=== PATIENT | female | born 1990 | race Caucasian/White ===

== ENCOUNTER 2016-05-11 07:06 | Emergency (ER) | payer BC ==
[2016-05-11 07:25] VITALS: BP 131/83
--- NOTE | 2016-05-11 07:45 | UC ---
FLU HPI - HPI Summary HPI Summary: Flu symptoms for 2 days. Today fever, TORRES, body aches, dry cough, red eyes, sinus pressure, malaise, fatigue. 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 - History of Current Complaint Chief Complaint: UCRespiratory Stated Complaint: FLU SXS Time Seen by Provider: 05/11/16 07:09 Hx Obtained From: Patient Hx Last Menstrual Period: 3 weeks ?: No Onset/Duration: Gradual Onset, Lasting Days - 2 Severity Currently: Moderate Severity Initially: Mild Associated Signs & Symptoms: Positive: Fever, Myalgia, Cough, Sore Throat, Nasal Congestion, Headache Related Hx: Possible Flu/Infectious Exposure - Risk Factors Influenza Risk Factors: Negative - Allergy/Home Medications Allergies/Adverse Reactions: Allergies Allergy/AdvReac Type Severity Reaction Status Date / Time Sulfa Antibiotics Allergy Swelling Verified 05/11/16 07:24 Home Medications: Home Medications Ibuprofen TAB* [Advil TAB*] 400 mg PO Q6H PRN 05/11/16 [History Confirmed ] Norethin Acet & Estrad-Fe [[place] 1-20 mg-Mcg(24)] 1 cap PO QPM 05/11/16 [ History Confirmed 05/11/16] Phenylephrine-Chlorpheniramine [[place]ulia-[place] Plus Cold &] 2 tab PO BID PRN 05/11 [History Confirmed 05/11/16] PMH/Surg Hx/FS Hx/Imm Hx Previously Healthy: Yes - Surgical History Surgical History: Yes Surgery Procedure, Year, and Place: mole - Family History Known Family History: Negative: Respiratory Disease - Social History Occupation: Student Lives: Alone Alcohol Use: Weekly Alcohol Amount: 4 Substance Use Type: None Smoking Status (MU): Never Smoked Tobacco Review of Systems Constitutional: Fever, Chills, Fatigue Skin: Negative Eyes: Negative ENT: Sore Throat Respiratory: Cough Cardiovascular: Negative Gastrointestinal: Negative Genitourinary: Negative Motor: Negative Neurovascular: Negative Musculoskeletal: Decreased ROM, Myalgia Neurological: Headache, Weakness Psychological: Negative All Other Systems Reviewed And Are Negative: Yes Physical Exam Triage Information Reviewed: Yes Appearance: Well-Appearing, No Pain Distress, Well-Nourished Vital Signs: Initial Vital Signs Temp 101.6 F 05/11/16 07:10 Pulse 117 05/11/16 07:10 Resp 18 05/11/16 07:10 BP 131/83 05/11/16 07:10 Pulse Ox 100 05/11/16 07:10 Vital Signs Reviewed: Yes Eyes: Positive: Conjunctiva Inflamed - bilat, mild ENT: Positive: Pharyngeal erythema, TMs normal. Negative: Nasal congestion, Nasal drainage, Tonsillar swelling, Tonsillar exudate, Trismus, Muffled/hoarse voice Neck exam: Normal Respiratory Exam: Normal Respiratory: Positive: Lungs clear, Normal breath sounds, No respiratory distress, No accessory muscle use Cardiovascular Exam: Normal Musculoskeletal Exam: Normal Neurological Exam: Normal Psychological Exam: Normal Skin Exam: Normal Flu Course/Dx - Differential Dx/Diagnosis Differential Diagnosis/HQI/PQRI: Influenza Provider Diagnoses: influenza Discharge - Discharge Plan Condition: Stable Disposition: HOME Patient Education Materials: Influenza (ED) Forms: *School Release
== END 2016-05-11 07:46 | disposition home or self-care (01) ==
LOC: UCCORT 07:06
DX: J11.1 Influenza due to unidentified influenza virus with other respiratory manifestations (principal); Z88.2 Allergy status to sulfonamides
CPT/HCPCS: 99201; G0463

== ENCOUNTER 2018-09-25 07:20 | Emergency (ER) | payer BC ==
[2018-09-25 07:38] VITALS: BP 103/71
[2018-09-25 08:21] LABS: Influenza A Molecular NEGATIVE (Negative); Influenza B Molecular NEGATIVE (Negative)
--- NOTE | 2018-09-25 08:26 | UC ---
Throat Pain/Nasal Albin HPI - HPI Summary HPI Summary: 27 yo asthmatic with nasal congestion., cough, wheezing and sore throat x 2-3 days yesterday felt feverish but tmax was<100 no cp or sob - History of Current Complaint Chief Complaint: UCRespiratory Stated Complaint: SORE THROAT,FEVER Time Seen by Provider: 09/25/18 07:46 Hx Obtained From: Patient Hx Last Menstrual Period: "I don't know the exact date, but it was almost a month ago." Onset/Duration: Gradual Onset Severity: Mild Pain Intensity: 4 Pain Scale Used: 0-10 Numeric Cough: None Associated Signs & Symptoms: Positive: Sinus Discomfort, Nasal Discharge - Epiglottits Risk Factors Epiglottis Risk Factors: Negative - Allergies/Home Medications Allergies/Adverse Reactions: Allergies Allergy/AdvReac Type Severity Reaction Status Date / Time Sulfa (Sulfonamide Allergy Swelling Verified 09/25/18 07:34 Antibiotics) PMH/Surg Hx/FS Hx/Imm Hx Previously Healthy: Yes Respiratory History: Asthma - Surgical History Surgical History: Yes Surgery Procedure, Year, and Place: Right Ovarian Cyst, 2018, [place] - Family History Known Family History: Positive: Hypertension Negative: Cardiac Disease, Diabetes, Respiratory Disease - Social History Alcohol Use: Weekly Alcohol Amount: 4 Substance Use Type: None Smoking Status (MU): Never Smoked Tobacco Review of Systems All Other Systems Reviewed And Are Negative: Yes Constitutional: Positive: Fever - dinesh Skin: Positive: Negative Eyes: Positive: Negative ENT: Positive: Sore Throat, Nasal Discharge, Sinus Congestion, Sinus Pain/ Tenderness Respiratory: Positive: Cough, Other - wheezing Cardiovascular: Positive: Negative Gastrointestinal: Positive: Negative Genitourinary: Positive: Negative Motor: Positive: Negative Neurovascular: Positive: Negative Musculoskeletal: Positive: Negative Neurological: Positive: Negative Psychological: Positive: Negative Physical Exam Triage Information Reviewed: Yes Appearance: Well-Appearing, No Pain Distress, Well-Nourished Vital Signs: Initial Vital Signs Temp 98.5 F 09/25/18 07:31 Pulse 90 09/25/18 07:31 Resp 18 09/25/18 07:31 BP 103/71 09/25/18 07:31 Pulse Ox 99 09/25/18 07:31 Vital Signs Reviewed: Yes Eyes: Positive: Conjunctiva Clear ENT: Positive: Hearing grossly normal, Pharynx normal, Nasal congestion, TMs normal, Uvula midline. Negative: Nasal drainage, Tonsillar swelling, Tonsillar exudate, Trismus, Muffled voice, Hoarse voice, Dental tenderness, Sinus tenderness Dental Exam: Normal Neck: Positive: Supple, Nontender, No Lymphadenopathy Respiratory: Positive: No respiratory distress, No accessory muscle use, Wheezing - with forced expiration Cardiovascular: Positive: RRR, No Murmur Musculoskeletal: Positive: ROM Intact, No Edema Neurological: Positive: Alert Psychological Exam: Normal Skin Exam: Normal Diagnostics - Laboratory Lab Results: influenza (-) Throat Pain/Nasal Course/Dx - Differential Dx/Diagnosis Provider Diagnosis: Viral URI with cough, Bronchospasm Discharge - Sign-Out/Discharge Documenting (check all that apply): Patient Departure All imaging exams completed and their final reports reviewed: No Studies - Discharge Plan Condition: Stable Disposition: HOME Patient Education Materials: Upper Respiratory Infection (ED), Bronchospasm (ED ) Referrals: Becka LERMA,Armando Peterson [Primary Care Provider] - 4 Days (if not better) - Billing Disposition and Condition Condition: STABLE Disposition: Home
[2018-09-25] MEDS ORDERED: Albuterol HFA INHALER* 8 gm MDI INH ONE (08:30)
[2018-09-25] MEDS ORDERED: predniSONE TAB* 20 MG PO ONE (08:30)
== END 2018-09-25 08:46 | disposition home or self-care (01) ==
LOC: UCCORT 07:20
DX: J06.9 Acute upper respiratory infection, unspecified (principal); R05 Cough; J98.01 Acute bronchospasm; Z88.2 Allergy status to sulfonamides
CPT/HCPCS: 99212; A9270-GY; G0463; J7512